=== PATIENT | male | born 1940 | race Caucasian/White ===

== ENCOUNTER 2016-05-04 09:47 | Day surgery (SDC) | payer OTHER ==
[~2016-05-04] VITALS: Ht 170.2 cm; Wt 71.0 kg
[~2016-05-04 09:47] MED LIST: APRESOLINE25 MG PO; BACTRIM,SEPT1 TABLE1 PO; CATAPRES0.2 MG PO; ERGOCALCIF50000 UNIT PO; IMURAN50 MG PO; LABETALOL HCL100 MG PO; LANTUS 3 M100 UNITS1 SC; NORVASC10 MG PO; NOVOLOG PE100 UNITS/ SC; PROTONIX20 MG PO; RAYOS1 MG PO; RENA-VITE RX T1 EACH PO; TYLENOL EXTRA500 MG PO; ZOCOR20 MG PO; ZOFRAN4 MG PO
[2016-05-04 10:25] VITALS: BP 167/74
[2016-05-04 10:39] LABS: POINT-OF-CARE METER ID UU14174212
[2016-05-04 14:11] VITALS: BP 125/51
[2016-05-04 14:52] LABS: POINT-OF-CARE METER ID UU14174212
[2016-05-04 15:15] VITALS: BP 164/80
[2016-05-04 15:30] VITALS: BP 182/80
== END 2016-05-04 15:50 | disposition home or self-care (01) ==
LOC: SDC 09:47
PROVIDERS: Neurological Surgery
PROC: 0QU03JZ Supplement Lumbar Vertebra with Synthetic Substitute, Percutaneous Approach (ICD-10-PCS; principal; 2016-05-04)
DX: M80.08XA Age-related osteoporosis with current pathological fracture, vertebra(e), initial encounter for fracture (principal); G89.29 Other chronic pain; M47.9 Spondylosis, unspecified; Z95.828 Presence of other vascular implants and grafts; Z86.718 Personal history of other venous thrombosis and embolism; I12.0 Hypertensive chronic kidney disease with stage 5 chronic kidney disease or end stage renal disease; E11.22 Type 2 diabetes mellitus with diabetic chronic kidney disease; N18.6 End stage renal disease; Z99.2 Dependence on renal dialysis; M35.9 Systemic involvement of connective tissue, unspecified; Z85.46 Personal history of malignant neoplasm of prostate; Z85.820 Personal history of malignant melanoma of skin; Z92.21 Personal history of antineoplastic chemotherapy; J98.4 Other disorders of lung; Z86.73 Personal history of transient ischemic attack (TIA), and cerebral infarction without residual deficits; Z88.8 Allergy status to other drugs, medicaments and biological substances
CPT/HCPCS: 82948; J0330; J0690; J1100; J1720; J2250; J2405; J3010